=== PATIENT | female | born 1970 | race Caucasian/White ===

== ENCOUNTER → 2019-05-11 | Outpatient (CLI) | payer BC ==
--- NOTE | 2019-05-11 11:39 | MM ---
Reason for exam: screening (asymptomatic). Baseline mammogram. History: Patient is postmenopausal and had first child at age 40. Physical Findings: Nurse did not find any significant physical abnormalities on exam. MG 3D Screening Mammo W/Cad Bilateral CC and MLO view(s) were taken. The breast tissue is extremely dense which could obscure a lesion on mammography. There is no discrete abnormality. Scattered benign punctate benign calcifications. These results were verbally communicated with the patient and result sheet given to the patient on 05/11/19. ASSESSMENT: Benign, BI-RAD 2 RECOMMENDATION: Routine screening mammogram of both breasts in 1 year.
== END | disposition home or self-care (01) ==
LOC: RADMAMWWP 10:49
PROVIDERS: ATTEND Family Medicine
DX: Z12.31 Encounter for screening mammogram for malignant neoplasm of breast (principal)
CPT/HCPCS: 77063; 77067

== ENCOUNTER 2020-09-10 13:30 | Emergency (ER) | payer BC, OTHER ==
[2020-09-10 13:46] VITALS: TEMP 99
--- NOTE | 2020-09-10 14:19 | ED ---
General Adult HPI - General Chief complaint: Shortness of Breath Stated complaint: Fever,MALIK,Covid exposure Time Seen by Provider: 09/10/20 14:00 Source: patient, RN notes reviewed Mode of arrival: ambulatory Limitations: no limitations - History of Present Illness Initial comments: 49-year-old, well appearing, well nourished white female presents to the emergency room with complaints of cough, decreased appetite, and fatigue since 09/02. Patient states that the cough increased over the last 2 days. Had telemedicine appointment yesterday, was prescribed Z-Srinath with steroids. Patient states was exposed to family members that she lives with who both tested positive for covid. Patient denies fever or chills or nausea and vomiting. Denies chest pain. Denies hematochezia or hematemesis. Patient states is active at home. Does have a pulse ox that she purchased that was reading low 90s which also had her concerned. Patient states that due to fatigue along with cough she decided to come to the emergency room today for a chest x-ray and see if she has Covid. Patient states only medical history of COPD, does not have home oxygen, is not a smoker. -: days(s) (8) Location: chest Radiation: non-radiation Consistency: intermittent Associated Symptoms: cough, loss of appetite, other (fatigue) Treatments Prior to Arrival: other (z-pack and steroids f/yesterday) - Related Data Allergies Allergy/AdvReac Type Severity Reaction Status Date / Time Penicillins Allergy Anaphylaxis Verified 09/10/20 13:47 Review of Systems ROS Statement: Those systems with pertinent positive or pertinent negative responses have been documented in the HPI. ROS Other: All systems not noted in ROS Statement are negative. Past Medical History Past Medical History: COPD History of Any Multi-Drug Resistant Organisms: None Reported Past Surgical History: No Surgical Hx Reported Past Psychological History: No Psychological Hx Reported Smoking Status: Former smoker Past Alcohol Use History: None Reported Past Drug Use History: None Reported General Exam Limitations: no limitations General appearance: alert, in no apparent distress Head exam: Present: atraumatic, normocephalic, normal inspection Eye exam: Present: normal appearance (glasses), PERRL, EOMI. Absent: scleral icterus, conjunctival injection, periorbital swelling ENT exam: Present: normal exam, normal oropharynx, mucous membranes moist Neck exam: Present: normal inspection, full ROM. Absent: tenderness, meningismus, lymphadenopathy, thyromegaly Respiratory exam: Present: normal lung sounds bilaterally. Absent: respiratory distress, wheezes, rales, rhonchi, stridor, chest wall tenderness, accessory muscle use, decreased breath sounds Cardiovascular Exam: Present: regular rate, normal rhythm, normal heart sounds. Absent: systolic murmur, diastolic murmur, rubs, gallop, clicks GI/Abdominal exam: Present: soft, normal bowel sounds. Absent: distended, tenderness, guarding, rebound, rigid Extremities exam: Present: normal inspection, full ROM, normal capillary refill. Absent: tenderness, pedal edema, joint swelling, calf tenderness Back exam: Present: normal inspection, full ROM. Absent: tenderness, CVA tenderness (R), CVA tenderness (L), rash noted Neurological exam: Present: alert, oriented X3, CN II-XII intact Psychiatric exam: Present: normal affect, normal mood Skin exam: Present: warm, dry, intact, normal color. Absent: rash, cyanosis, diaphoretic, erythema, pallor, mottled Course Vital Signs 09/10/20 13:42 Temperature 99.0 F Pulse Rate 93 Respiratory 22 Rate Blood Pressure 151/79 O2 Sat by Pulse 96 Oximetry EKG Findings - EKG Results: EKG: WNL (Ventricular rate is 73, VA interval 0.124, QRS 0.78, QTC 0.425, normal sinus rhythm), sinus rhythm Medical Decision Making - Medical Decision Making Chest x-ray shows heart size within normal limits, lungs are clear, diaphragm is normal, no infiltrates or effusions noted. UA is negative for glucose or infe ctious process. Covid +. Patient will be discharged home to follow up with her primary care doctor, increase fluids. Patient is agreeable to this plan, will continue to take medication as prescribed her doctor. Case discussed with Dr. Rice who is agreeable to this plan. - Lab Data Lab Results 09/10/20 09/10/20 Range/Units 13:50 14:16 Urine Color Colorless Urine Appearance Clear (Clear) Urine pH 7.0 (5.0-8.0) Ur Specific [place] 1.001 (1.001-1.035) Urine Protein Negative (Negative) Urine Glucose (UA) Negative (Negative) Urine Ketones Negative (Negative) Urine Blood Negative (Negative) Urine Nitrite Negative (Negative) Urine Bilirubin Negative (Negative) Urine Urobilinogen <2.0 (<2.0) mg/dL Ur Leukocyte Esterase Negative (Negative) Coronavirus (PCR) Detected A (Not Detectd) Disposition Clinical Impression: COVID-19 Disposition: HOME SELF-CARE Condition: Good Instructions (If sedation given, give patient instructions): Coronavirus Disease 2019 (COVID-19) Additional Instructions: Follow-up with the primary care doctor in 1 week. Return if worsening shortness of breath or chest pain. Is patient prescribed a controlled substance at d/c from ED?: No Referrals: Jose Nunez MD [Primary Care Provider] - 1-2 days Time of Disposition: 15:33
[2020-09-10 14:29] LABS: Appearance,Urine Clear (Clear); Bilirubin,Urine Negative (Negative); Blood,Urine Negative (Negative); Color,Urine Colorless; Glucose,Urine (UA) Negative (Negative); Ketones,Urine Negative (Negative); Leukocyte Esterase,Urine Negative (Negative); Nitrite,Urine Negative (Negative); Protein,Urine Negative (Negative); Specific Gravity,Urine 1.001 (1.001-1.035); Urobilinogen,Urine <2.0 mg/dL (<2.0)
--- NOTE | 2020-09-10 14:32 | XR ---
EXAMINATION TYPE: XR chest 2V DATE OF EXAM: 09/10/2020 COMPARISON: 06/10/2013 HISTORY: Cough TECHNIQUE: FINDINGS: Heart and mediastinum are normal. The lungs are clear. Diaphragm is normal. Bony thorax [place] ears normal. IMPRESSION: Normal chest. No change.
[2020-09-10 16:16] VITALS: BP 141/70; PULSE 84; RESP 18
== END 2020-09-10 16:16 | disposition home or self-care (01) ==
LOC: EC 13:30
DX: U07.1 COVID-19 (principal); J44.9 Chronic obstructive pulmonary disease, unspecified; Z87.891 Personal history of nicotine dependence; Z88.0 Allergy status to penicillin
CPT/HCPCS: 71046; 81003; 87635; 93005; 99285